=== PATIENT | male | born 1940 | race Hispanic/Latino ===

== ENCOUNTER 2020-07-24 19:36 | Emergency (ER) | payer MEDICARE ==
[2020-07-24 21:08] LABS: Hemoglobin 13.6 g/dL (14.0-18.0); Mean Corpuscular HGB CONC 34.7 g/dL (32.0-36.0); Mean Corpuscular Hemoglobin 32.2 pg (27.0-31.0); Mean Corpuscular Volume 92.8 fL (78.0-98.0); RBC Distribution Width 12.9 % (11.5-14.5); Red Blood Cell (RBC) Count 4.21 mill/uL (4.70-6.10); White Blood Cell (WBC) Count 5.2 thou/uL (4.8-10.8)
[2020-07-24 21:19] LABS: ALT (SGPT) 23 U/L (8-55); AST (SGOT) 36 U/L (5-34); Albumin 3.5 g/dL (3.4-4.8); Alkaline Phosphatase 96 U/L (40-110); Anion Gap 10 mmol/L (10-20); BUN (Urea Nitrogen) 23 mg/dL (8.4-25.7); Bilirubin, Total 0.5 mg/dL (0.2-1.2); Calc. Creatinine Clearance 0 mL/min (70-130); Calcium 10.3 mg/dL (7.8-10.44); Carbon Dioxide 24 mmol/L (23-31); Chloride 109 mmol/L (98-107); Estimated GFR-MDRD 84; Globulin 3.4 g/dL (2.4-3.5); Glucose 116 mg/dL (83-110); Potassium 4.1 mmol/L (3.5-5.1); Protein, Total 6.9 g/dL (5.8-8.1); Sodium 139 mmol/L (136-145)
[2020-07-24 21:22] LABS: #Basophils 0.1 thou/uL (0.0-0.2); #Eosinphils 0.2 thou/uL (0.0-0.7); #Lymphocytes 1.4 thou/uL (1.20-3.40); #Monocytes 0.5 thou/uL (0.11-0.59); #Neutrophils 3.1 thou/uL (1.40-6.50); %Basophils 1.1 % (0.0-1.0); %Eosinophils 3.1 % (0.0-10.0); %Lymphocytes 26.4 % (21.0-51.0); %Monocytes 9.1 % (0.0-10.0); %Neutrophils 60.3 % (42.0-75.0); Mean Platelet Volume 10.6 fL (7.4-10.4); Platelet Count 81 thou/uL (130-400); Platelet Morphology Comment Appears Decreased
[2020-07-24 21:36] LABS: Bacteria/HPF None Seen HPF (None Seen); Bilirubin Negative (Negative); Blood, Urine Trace (Negative); Clarity Clear (Clear); Glucose, Urine (Dipstick) Normal (Negative); Ketone, Urine Negative (Negative); Leukocyte Negative Leu/uL (Negative); Nitrite Negative (Negative); Protein, Urine (Dipstick) 200 mg/dL (Neg-Trace); RBC/HPF 0-3 HPF (0-3); Specific Gravity, Urine 1.013 (1.002-1.036); Squamous Epithelial 0-3 HPF (0-3); Urobilinogen Normal mg/dL (Less than 2); WBC/HPF 0-3 HPF (0-3); pH, Urine 5.5 (5.0-9.0)
--- NOTE | 2020-07-24 21:42 | RAD ---
LUMBAR SPINE SERIES THREE VIEWS: History: Back pain with fall. Comparison: None FINDINGS: Some minimal superior endplate compression changes of L1, age indeterminate. No bony retropulsion. Boubacar jessica are demineralized. The remainder of the vertebral bodies have fairly normal height. Pedicles are intact. Degenerative osteophytic changes are seen. There are vacuum disc phenomenon at L1-2 and L3-4 with mild to moderate disc narrowing. Degenerative facet changes are present. IMPRESSION: Minimal age indeterminate compression changes of the superior endplate of L1. POS: OFF
--- NOTE | 2020-07-24 21:43 | RAD ---
CHEST ONE VIEW: History: Fall, chronic back pain. FINDINGS: Heart size is within normal limits. There are post op sternotomy changes. A pacemaker is present. Leena gs are clear of any infiltrates. I do not appreciate any rib fractures or pneumothorax. IMPRESSION: No active intrathoracic disease. POS: OFF
--- NOTE | 2020-07-24 22:00 | CT ---
CT OF BRAIN PERFORMED WITHOUT CONTRAST ENHANCEMENT: Date: 07/24/2020 HISTORY: Fall with head injury. FINDINGS: There is generalized ventricular and sulcal prominence. Old right frontal infarct. No signs of intrac erebral hemorrhage or extra-axial fluid collections. The mastoid air cells and visualized sinuses are clear. IMPRESSION: No acute intracranial abnormalities. POS: OFF
--- NOTE | 2020-07-24 22:05 | CT ---
CT CERVICAL SPINE PERFORMED WITHOUT CONTRAST ENHANCEMENT: Date: 07/24/2020 HISTORY: Neck pain status post fall. 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 Marked degenerative disc narrowing at C4-5, C5-6, and C6-7. Slight overall reversal to the cervical curve. Carotid bulb calcifications are noted. Mild canal and foraminal stenosis seen at the C5-6 level, and mild bilateral foraminal narrowing at C6-7. There is no CT evidence for fracture. Lung apices are clear. IMPRESSION: No CT evidence of fracture of the cervical spine. POS: OFF
--- NOTE | 2020-07-29 14:07 | EKG ---
Test Reason : Blood Pressure : / mmHG Vent. Rate : 060 BPM Atrial Rate : 060 BPM P-R Int : 158 ms QRS Dur : 136 ms QT Int : 486 ms P-R-T Axes : 079 -47 067 degrees QTc Int : 486 ms Atrial-paced rhythm Right bundle branch block Left anterior fascicular block Bifascicular block Minimal voltage criteria for LVH, may be normal variant Septal infarct , age undetermined Abnormal ECG Confirmed by GIOVANNY SANTOS ([id number]), brands editor DOMENICO FREY ([id number]) on 07/29/2020 2:07:22 PM Referred By: Confirmed By:GIOVANNY Levine
== END 2020-07-24 23:44 | disposition home or self-care (01) ==
LOC: ERS 19:36
DX: M54.5 Low back pain (principal); R53.1 Weakness; E11.9 Type 2 diabetes mellitus without complications; I10 Essential (primary) hypertension; E78.00 Pure hypercholesterolemia, unspecified; Z79.899 Other long term (current) drug therapy; W18.30XA Fall on same level, unspecified, initial encounter
CPT/HCPCS: 36415; 70450; 71045; 72100; 72125; 80053; 81003; 81015; 85025; 87086; 93005